=== PATIENT | female | born 1995 | race Hispanic/Latino ===

== ENCOUNTER 2017-05-11 10:06 | Inpatient (IN) | payer MEDICAID ==
[2017-05-11] MEDS ORDERED: Sodium Chloride 0.9% 1,000 ML IV STA (10:34)
[2017-05-11] MEDS ORDERED: Iohexol 240 (50 ml) ONE (10:39)
--- NOTE | 2017-05-11 10:39 | ED PDOC ---
Arrival/HPI - General Chief Complaint: Abdominal Pain Time Seen by Provider: 05/11/17 10:08 Historian: Patient - History of Present Illness Narrative History of Present Illness (Text): 05/11/17 10:35 21 y/o female, pmh including abdominal pain, allergic to penicillin, c/o sudden onset of generalized abdominal pain started this morning. Aching and sharp pain , epigastric to the periumbilical region, associated with nausea and vomiting, feeling fatigue, no night sweat, no change in vision, no chest pain or shortness of breath, no palpitation, no night sweat, no other medical or psychological complaints. Past Medical History - Provider Review Nursing Documentation Reviewed: Yes - Past History Past History: No Previous - Infectious Disease Hx of Infectious Diseases: None - Tetanus Immunization Tetanus Immunization: Up to Date - Reproductive Menopause: No - Past Medical History Past Medical History: No Previous - Hematological/Oncological Hx Anemia: Yes - Psychiatric Hx Substance Use: No - Past Surgical History Past Surgical History: No Previous - Anesthesia Hx Anesthesia: No Family/Social History - Physician Review Nursing Documentation Reviewed: Yes Family/Social History: Unknown Family HX Smoking Status: Unknown If Ever Smoked Hx Alcohol Use: No Hx Substance Use: No Allergies/Home Meds Allergies/Adverse Reactions: Allergies No Known Allergies Allergy (Verified 05/11/17 14:41) Home Medications: Home Meds Medication Instructions Recorded Confirmed RX: No Known Home Med 05/11/17 05/11/17 Review of Systems - Review of Systems Constitutional: absent: Fatigue, Fevers Eyes: absent: Vision Changes ENT: absent: Hearing Changes Respiratory: absent: SOB, Cough Cardiovascular: absent: Chest Pain Gastrointestinal: Abdominal Pain, Nausea Skin: absent: Rash, Pruritis Neurological: absent: Headache Psychiatric: absent: Anxiety, Depression, Suicidal Ideation Physical Exam Vital Signs Temp Pulse Resp BP Pulse Ox 05/11/17 14:14 79 18 103/61 100 05/11/17 13:11 85 18 99/58 L 100 05/11/17 11:21 90 20 90/52 L 100 05/11/17 10:22 97.5 F L 87 22 113/52 L 100 05/11/17 10:14 98 F 71 16 102/56 L 98 - Systems Exam Head: Present: Atraumatic, Normocephalic Pupils: Present: PERRL Extroacular Muscles: Present: EOMI Conjunctiva: Present: Normal Mouth: Present: Moist Mucous Membranes Neck: Present: Normal Range of Motion Respiratory/Chest: Present: Clear to Auscultation, Good Air Exchange. No: Respiratory Distress, Accessory Muscle Use Cardiovascular: Present: Regular Rate and Rhythm, Normal S1, S2. No: Murmurs Abdomen: Present: Tenderness (epigastric and periumbilical region), Normal Bowel Sounds. No: Distention, Peritoneal Signs, Rebound, Guarding Back: Present: Normal Inspection Upper Extremity: Present: Normal Inspection. No: Cyanosis, Edema Lower Extremity: Present: Normal Inspection. No: Edema Neurological: Present: GCS=15, CN II-XII Intact, Speech Normal Skin: Present: Warm, Dry, Normal Color. No: Rashes Psychiatric: Present: Alert, Oriented x 3, Normal Insight, Normal Concentration Medical Decision Making ED Course and Treatment: 05/11/17 10:40 -labs/ua -gallbladder sonogram -CT abdomen and pelvis -IVF/pepcid/reglan -Observe and reassess 05/11/17 14:03 -Urine hcg negative. -labs are non-significant except wbc 11.7 -sonogram show no acute findings -CT abdomen and pelvis show acute appendicitis -IV cipro/flagyl/pt/ptt/ekg/cxr ordered -Pt. will need surgery, [facility] general surgery 05/11/17 14:20 -I spoke to the residential direct support professional Dr. Gabino Saleh, discussed about the case/labs/ radiology results, stated that Dr. Franklin is in surgery, unable to take the call and he will speak to Dr. Rebolledo. He will come to evaluate the patient first. -I discussed with the patient and agreed to be admitted. 05/11/17 14:50 -EKG: NSR @ 86 BPM, no ST elevation or depression, no T wave inversion. -Chest xray show no active disease -General surgeon resident Dr. Gabino Chase evaluated the patient, [facility] -I spoke to Dr. Dewey, discussed about the case and will admit the patient. -I discussed with Dr. Joseph and he will put in the admission order. - Lab Interpretations Lab Results: 05/11/17 10:40 05/11/17 10:40 Lab Results 05/11/17 13:00: Urine Color Yellow, Urine Appearance Clear, Urine pH 6.0, Ur Specific [place] 1.025, Urine Protein Negative, Urine Glucose (UA) Negative, Urine Ketones 40 H, Urine Blood Negative, Urine Nitrate Negative, Urine Bilirubin Negative, Urine Urobilinogen 0.2, Ur Leukocyte Esterase Negative 05/11/17 10:40: WBC 11.7 H, RBC 4.30, Hgb 12.4, Hct 37.4, MCV 87.0, MCH 28.8, MCHC 33.2, RDW 13.5, Plt Count 167, MPV 10.9, Gran % 84.3 H, Lymph % (Auto) 9.1 L, [place] % (Auto) 6.2 H, Eos % (Auto) 0.2 L, Baso % (Auto) 0.2, Gran # 9.88 H, Lymph # 1.1 L, [place] # 0.7 H, Eos # 0.0, Baso # 0.02 05/11/17 10:40: Beta HCG, Quant < 2.39 05/11/17 10:40: Sodium 136, Potassium 3.8, Chloride 105, Carbon Dioxide 23, Anion Gap 12, BUN 13, Creatinine 0.7, Est GFR ( Amer) > 60, Est GFR (Non- Af Amer) > 60, Random Glucose 120 H, Calcium 9.0, Magnesium 1.9, Total Bilirubin 0.5, AST 31, ALT 25, Alkaline Phosphatase 66, Total Protein 7.0, Albumin 4.0, Globulin 3.0, Albumin/Globulin Ratio 1.4, Lipase 116 I have reviewed the lab results: Yes Interpretation: Abnormal lab values (wbc 11.7) - RAD Interpretation Radiology Orders: 05/11/17 10:33 ABD PELVIS PO & IV CONTRAST [CT] Stat 05/11/17 10:40 GALL BLADDER [US] Stat 05/11/17 14:01 CHEST PORTABLE [RAD] Stat Gallbladder: HISTORY: epigastric abdominal pain COMPARISON: None. TECHNIQUE: Sonographic evaluation of the right upper quadrant of the abdomen. FINDINGS: LIVER: Measures 15.2 cm in length. Patent portal vein. Portal venous flow: Hepatopetal. Unremarkeable echogenicity of the liver parenchyma. No mass. No intrahepatic bile duct dilatation. GALLBLADDER: Unremarkable. No gallstones. COMMON BILE DUCT: Measures 2.3 mm. No stones. No dilatation. PANCREAS: Unremarkable as visualized. No mass. No ductal dilatation. RIGHT KIDNEY: Measures 10.9 cm in length. Normal echogenicity. No calculus, mass, or hydronephrosis. AORTA: No aneurysmal dilatation. IVC: Unremarkable. OTHER FINDINGS: None . IMPRESSION: No acute findings related to/accounting for the clinical presentation. PROCEDURE: CT Abdomen and Pelvis with contrast HISTORY: generalized abdominal pain COMPARISON: None. TECHNIQUE: Contrast dose: 100 cc of Omni 350 Radiation dose: Total exam DLP = 256 mGy-cm. This CT exam was performed using one or more of the following dose reduction techniques: Automated exposure control, adjustment of the mA and/or kV according to patient size, and/or use of iterative reconstruction technique. FINDINGS: LOWER THORAX: Unremarkable. LIVER: Unremarkable. No gross lesion or ductal dilatation. GALLBLADDER AND BILE DUCTS: Unremarkable. PANCREAS: Unremarkable. No gross lesion or ductal dilatation. SPLEEN: Unremarkable. ADRENALS: Unremarkable. No mass. KIDNEYS AND URETERS: Unremarkable. No hydronephrosis. No solid mass. VASCULATURE: Unremarkable. No aortic aneurysm. BOWEL: Unremarkable. No obstruction. No gross mural thickening. APPENDIX: The appendix is dilated measuring 10 mm. There is thickening and enhancement of the wall of the appendix. Findings are consistent with early appendicitis. Findings are seen on axial image 119 and coronal image 21. The study was reviewed with the MYLA Levy at 2 p.m. PERITONEUM: Unremarkable. No free fluid. No free air. LYMPH NODES: Unremarkable. No enlarged lymph nodes. BLADDER: Unremarkable. REPRODUCTIVE: Unremarkable. BONES: No acute fracture. OTHER FINDINGS: None. IMPRESSION: The appendix is dilated measuring 10 mm. There is thickening and enhancement of the wall of the appendix. Findings are consistent with early appendicitis. Chest xray; HISTORY: medical clearance COMPARISON: No prior. FINDINGS: LUNGS: No active pulmonary disease. PLEURA: No significant pleural effusion identified, no pneumothorax apparent. CARDIOVASCULAR: Normal. OSSEOUS STRUCTURES: No significant abnormalities. VISUALIZED UPPER ABDOMEN: Normal. OTHER FINDINGS: None. IMPRESSION: No active disease. Wire Winding Machine Operator: Radiologist - EKG Interpretation EKG Interpretation (Text): 05/11/17 14:26 -EKG: NSR @ 86 BPM, no ST elevation or depression, no T wave inversion. Interpreted by ED Physician: Yes Type: 12 lead EKG - Medication Orders Current Medication Orders: Ciprofloxacin (Cipro 400mg/200ml Dsw) 400 mg in 200 mls @ 133.3 mls/hr IVPB STAT STA PRN Reason: Protocol Stop: 05/11/17 15:28 Metronidazole (Flagyl) 500 mg in 100 mls @ 100 mls/hr IVPB STAT STA PRN Reason: Protocol Stop: 05/11/17 15:00 Last Admin: 05/11/17 14:38 Dose: 100 mls/hr eMAR Start Stop Document 05/11/17 14:38 CNR (Rec: 05/11/17 14:38 CNR [id number]) Intravenous Solution Start Date 05/11/17 Start Time 14:38 Discontinued Medications Famotidine (Pepcid) 20 mg IVP STAT STA Stop: 05/11/17 10:34 Last Admin: 05/11/17 10:48 Dose: 20 mg IVP Administration Document 05/11/17 10:48 CNR (Rec: 05/11/17 10:48 CNR [id number]) Charges for Administration # of IVP Administrations 1 Sodium Chloride (Sodium Chloride 0.9%) 1,000 mls @ 999 mls/hr IV .Q1H1M STA Stop: 05/11/17 11:34 Last Admin: 05/11/17 10:48 Dose: 999 mls/hr eMAR Start Stop Document 05/11/17 10:48 CNR (Rec: 05/11/17 10:48 CNR [id number]) Intravenous Solution Start Date 05/11/17 Start Time 10:48 Metoclopramide HCl (Reglan) 10 mg IVP STAT STA Stop: 05/11/17 10:34 Last Admin: 05/11/17 11:31 Dose: 10 mg IVP Administration Document 05/11/17 11:31 CNR (Rec: 05/11/17 11:31 CNR [id number]) Charges for Administration # of IVP Administrations 1 - PA / RIM FIRE PRIMING TOOL SETTER / Resident Statement MD/DO has reviewed & agrees with the documentation as recorded. Disposition/Present on Arrival - Present on Arrival Any Indicators Present on Arrival: No History of DVT/PE: No History of Uncontrolled Diabetes: No Urinary Catheter: No History of Decub. Ulcer: No History Surgical Site Infection Following: None - Disposition Have Diagnosis and Disposition been Completed?: Yes Diagnosis: Appendicitis, Abdominal pain Disposition: HOSPITALIZED Disposition Time: 14:04 Patient Plan: Admission Patient Problems: Current Active Problems Problem Status Onset Abdominal pain Acute Appendicitis Acute Condition: STABLE Forms: [employer] (Sinhala)
[2017-05-11 11:25] LABS: BASO # 0.02 K/mm3 (0.0-2.0); BASO % 0.2 % (0.0-3.0); EOS % 0.2 % (1.5-5.0); GRAN # 9.88 (1.4-6.5); GRAN % 84.3 % (50.0-68.0); HEMATOCRIT 37.4 % (36.0-48.0); LYMPH # 1.1 (1.2-3.4); LYMPH % 9.1 % (22.0-35.0); MEAN CORPUSCULAR HEMOGLOBIN 28.8 pg (25.0-35.0); MEAN CORPUSCULAR HGB CONC 33.2 g/dl (31.0-37.0); MEAN PLATELET VOLUME 10.9 fl (7.0-11.0); MONO # 0.7 (0.1-0.6); MONO % 6.2 % (1.0-6.0); RED CELL DISTRIBUTION WIDTH 13.5 % (11.5-14.5); WHITE BLOOD COUNT 11.7 10^3/ul (4.5-11.0)
[2017-05-11 12:10] LABS: ALB/GLOB RATIO 1.4 (1.1-1.8); ALKALINE PHOSPHATASE 66 U/L (38-126); ALT/SGPT 25 U/L (7-56); AST/SGOT 31 U/L (14-36); BILIRUBIN,TOTAL 0.5 mg/dL (0.2-1.3); BLOOD UREA NITROGEN 13 mg/dL (7-21); CARBON DIOXIDE 23 mmol/L (21-33); CHLORIDE 105 mmol/L (98-107); GFR AFRICAN-AMERICAN > 60; GLUCOSE,RANDOM 120 mg/dL (70-110); LIPASE 116 U/L (23-300); MAGNESIUM 1.9 mg/dL (1.7-2.2); POTASSIUM 3.8 mmol/L (3.6-5.0); SODIUM 136 mmol/L (132-148)
[2017-05-11 13:15] LABS: URINE BILIRUBIN NEGATIVE (NEGATIVE); URINE BLOOD NEGATIVE (NEGATIVE); URINE GLUCOSE (UA) NEGATIVE (NEGATIVE); URINE KETONE 40 mg/dL (NEGATIVE); URINE LEUKOCYTE ESTERASE NEGATIVE Leu/uL (NEGATIVE); URINE PROTEIN NEGATIVE mg/dL (<30 mg/dL); URINE UROBILINOGEN 0.2 E.U./dL (<1 E.U./dL)
--- NOTE | 2017-05-11 13:21 | US ---
HISTORY: epigastric abdominal pain COMPARISON: None. TECHNIQUE: Sonographic evaluation of the right upper quadrant of the abdomen. FINDINGS: LIVER: Measures 15.2 cm in length. Patent portal vein. Portal venous flow: Hepatopetal. Unremarkeable echogenicity of the liver parenchyma. No mass. No intrahepatic bile duct dilatation. GALLBLADDER: Unremarkable. No gallstones. COMMON BILE DUCT: Measures 2.3 mm. No stones. No dilatation. PANCREAS: Unremarkable as visualized. No mass. No ductal dilatation. RIGHT KIDNEY: Measures 10.9 cm in length. Normal echogenicity. No calculus, mass, or hydronephrosis. AORTA: No aneurysmal dilatation. IVC: Unremarkable. OTHER FINDINGS: None . IMPRESSION: No acute findings related to/accounting for the clinical presentation.
[2017-05-11 13:23] LABS: URINE APPEARANCE CLEAR (CLEAR); URINE COLOR YELLOW (YELLOW)
[2017-05-11] MEDS ORDERED: Iohexol 350 MG/100 ML VIAL ONE (13:26)
[2017-05-11] MEDS ORDERED: Ciprofloxacin 400mg/200ml D5W 400 MG/200 ML BAG IVPB STA (13:58)
[2017-05-11] MEDS ORDERED: metroNIDAZOLE IV 500 mg/100 ml 500 MG/100 ML BAG IVPB STA (14:01)
--- NOTE | 2017-05-11 14:10 | CT ---
PROCEDURE: CT Abdomen and Pelvis with contrast HISTORY: generalized abdominal pain COMPARISON: None. TECHNIQUE: Contrast dose: 100 cc of Omni 350 Radiation dose: Total exam DLP = 256 mGy-cm. This CT exam was performed using one or more of the following dose reduction techniques: Automated exposure control, adjustment of the mA and/or kV according to patient size, and/or use of iterative reconstruction technique. FINDINGS: LOWER THORAX: Unremarkable. LIVER: Unremarkable. No gross lesion or ductal dilatation. GALLBLADDER AND BILE DUCTS: Unremarkable. PANCREAS: Unremarkable. No gross lesion or ductal dilatation. SPLEEN: Unremarkable. ADRENALS: Unremarkable. No mass. KIDNEYS AND URETERS: Unremarkable. No hydronephrosis. No solid mass. VASCULATURE: Unremarkable. No aortic aneurysm. BOWEL: Unremarkable. No obstruction. No gross mural thickening. APPENDIX: The appendix is dilated measuring 10 mm. There is thickening and enhancement of the wall of the appendix. Findings are consistent with early appendicitis. Findings are seen on axial image 119 and coronal image 21. The study was reviewed with the MYLA Levy at 2 p.m. PERITONEUM: Unremarkable. No free fluid. No free air. LYMPH NODES: Unremarkable. No enlarged lymph nodes. BLADDER: Unremarkable. REPRODUCTIVE: Unremarkable. BONES: No acute fracture. OTHER FINDINGS: None. IMPRESSION: The appendix is dilated measuring 10 mm. There is thickening and enhancement of the wall of the appendix. Findings are consistent with early appendicitis.
--- NOTE | 2017-05-11 14:31 | RAD ---
HISTORY: medical clearance COMPARISON: No prior. FINDINGS: LUNGS: No active pulmonary disease. PLEURA: No significant pleural effusion identified, no pneumothorax apparent. CARDIOVASCULAR: Normal. OSSEOUS STRUCTURES: No significant abnormalities. VISUALIZED UPPER ABDOMEN: Normal. OTHER FINDINGS: None. IMPRESSION: No active disease.
--- NOTE | 2017-05-11 14:53 | CP.PCM.CON ---
Addendum entered and electronically signed by Main Raya DO 05/11/17 15:35 : Negative McBurney's Point, Negative Rovsing sign. Original Note: <Main Raya - Last Filed: 05/11/17 14:42> History of Present Illness - History of Present Illness History of Present Illness: Surgery Consult Note for Dr. Moctezuma Pt is a 21 yo female with PMH of iron-deficiency anemia presents with abdominal pain that started this AM. Pt describes pain as sharp and is localized to the epigastric region and radiates periumbically. Pt admits to nausea and multiple instances of bilious, non-bloody vomiting, and diarrhea. Pt states that pain was exacerbated during car ride to hospital and any sudden movements. Pt reports similar symptoms in the past that resolved after vomiting. In the ED, patient was given Reglan and Pepcid, which resolved her symptoms. Pt denied CP, SOB, fever, chills, [place]STER, dizziness, fatigue, melena, BRBPR, or dysuria. PMH: iron deficiency anemia PSH: None All: NKDA FHx: Non-contributory SH: Denied tobacco, EtOH, and illicit drug use Review of Systems - Review of Systems Review of Systems: 12 point ROS reviewed and is negative other than what is stated in HPI. Past Patient History - Infectious Disease Hx of Infectious Diseases: None - Tetanus Immunizations Tetanus Immunization: Up to Date - Past Social History Smoking Status: Unknown If Ever Smoked - HEMATOLOGICAL/ONCOLOGICAL Hx Anemia: Yes - PSYCHIATRIC Hx Substance Use: No - ANESTHESIA Hx Anesthesia: No Meds Allergies/Adverse Reactions: Allergies Allergy/AdvReac Type Severity Reaction Status Date / Time No Known Allergies Allergy Verified 05/11/17 17:31 - Medications Medications: Current Medications Ciprofloxacin (Cipro 400mg/200ml Dsw) 400 mg in 200 mls @ 133.3 mls/hr IVPB STAT STA PRN Reason: Protocol Stop: 05/11/17 15:28 Metronidazole (Flagyl) 500 mg in 100 mls @ 100 mls/hr IVPB STAT STA PRN Reason: Protocol Stop: 05/11/17 15:00 Last Admin: 05/11/17 14:38 Dose: 100 mls/hr Physical Exam - Constitutional Appears: No Acute Distress - Head Exam Head Exam: NORMAL INSPECTION - Eye Exam Eye Exam: Normal appearance - Neck Exam Neck exam: Positive for: Normal Inspection - Respiratory Exam Respiratory Exam: NORMAL BREATHING PATTERN. absent: Accessory Muscle Use, Respiratory Distress - Cardiovascular Exam Cardiovascular Exam: RRR. absent: Diastolic murmur, Gallop, Rubs, Systolic Murmur - GI/Abdominal Exam GI & Abdominal Exam: Soft. absent: Distended, Guarding, Organomegaly, Rebound, Tenderness Additional comments: Negative Psoas Sign, Negative Obturator Sign, No peritoneal signs - Extremities Exam Extremities exam: Positive for: normal inspection - Neurological Exam Neurological exam: Alert, Oriented x3 - Skin Skin Exam: Dry, Intact, Normal Color, Warm Results - Vital Signs Recent Vital Signs: Last Vital Signs Temp 97.5 F L 05/11/17 10:22 Pulse 79 05/11/17 14:14 Resp 18 05/11/17 14:14 BP 103/61 05/11/17 14:14 Pulse Ox 100 05/11/17 14:14 - Labs Result Diagrams: 05/11/17 10:40 05/11/17 10:40 Labs: Laboratory Results - last 24 hr 05/11/17 05/11/17 05/11/17 10:40 10:40 10:40 WBC 11.7 H RBC 4.30 Hgb 12.4 Hct 37.4 MCV 87.0 MCH 28.8 MCHC 33.2 RDW 13.5 Plt Count 167 MPV 10.9 Gran % 84.3 H Lymph % (Auto) 9.1 L [place] % (Auto) 6.2 H Eos % (Auto) 0.2 L Baso % (Auto) 0.2 Gran # 9.88 H Lymph # 1.1 L [place] # 0.7 H Eos # 0.0 Baso # 0.02 Sodium 136 Potassium 3.8 Chloride 105 Carbon Dioxide 23 Anion Gap 12 BUN 13 Creatinine 0.7 Est GFR ( Amer) > 60 Est GFR (Non-Af Amer) > 60 Random Glucose 120 H Calcium 9.0 Magnesium 1.9 Total Bilirubin 0.5 AST 31 ALT 25 Alkaline Phosphatase 66 Total Protein 7.0 Albumin 4.0 Globulin 3.0 Albumin/Globulin Ratio 1.4 Lipase 116 Beta HCG, Quant < 2.39 Urine Color Urine Appearance Urine pH Ur Specific [place] Urine Protein Urine Glucose (UA) Urine Ketones Urine Blood Urine Nitrate Urine Bilirubin Urine Urobilinogen Ur Leukocyte Esterase 05/11/17 13:00 WBC RBC Hgb Hct MCV MCH MCHC RDW Plt Count MPV Gran % Lymph % (Auto) [place] % (Auto) Eos % (Auto) Baso % (Auto) Gran # Lymph # [place] # Eos # Baso # Sodium Potassium Chloride Carbon Dioxide Anion Gap BUN Creatinine Est GFR ( Amer) Est GFR (Non-Af Amer) Random Glucose Calcium Magnesium Total Bilirubin AST ALT Alkaline Phosphatase Total Protein Albumin Globulin Albumin/Globulin Ratio Lipase Beta HCG, Quant Urine Color Yellow Urine Appearance Clear Urine pH 6.0 Ur Specific [place] 1.025 Urine Protein Negative Urine Glucose (UA) Negative Urine Ketones 40 H Urine Blood Negative Urine Nitrate Negative Urine Bilirubin Negative Urine Urobilinogen 0.2 Ur Leukocyte Esterase Negative Assessment & Plan - Assessment and Plan (Free Text) Assessment: 21 yo F presents with abdominal pain Plan: - CT showed 10 mm dilated appendix with wall thickening - GB US negative - Will reevaulate with serial abdominal exams - Cont IV abx - NPO - IVF - DW Dr. Rhianna Raay, PGY1 <Buddy Moctezuma - Last Filed: 05/12/17 00:17> Meds - Medications Medications: Current Medications Acetaminophen (Tylenol 325mg Tab) 650 mg PO Q6H PRN PRN Reason: Pain, Mild (1-3) Metronidazole (Flagyl) 500 mg in 100 mls @ 100 mls/hr IVPB Q8 GEOR[place]ES PRN Reason: Protocol Last Admin: 05/11/17 21:46 Dose: 100 mls/hr Lactated Ringer's (Lactated Ringer's) 1,000 mls @ 100 mls/hr IV .Q10H [facility] Last Admin: 05/11/17 15:49 Dose: 100 mls/hr Ciprofloxacin (Cipro 400mg/200ml Dsw) 400 mg in 200 mls @ 133.3 mls/hr IVPB 0600,1800 GEORGES PRN Reason: Protocol Stop: 05/12/17 07:31 Ondansetron HCl (Zofran Inj) 4 mg IVP Q6 GEORGES Results - Vital Signs Recent Vital Signs: Last Vital Signs Temp 98.8 F 05/11/17 16:31 Pulse 90 05/11/17 16:31 Resp 18 05/11/17 16:31 BP 110/70 05/11/17 16:31 Pulse Ox 98 05/11/17 16:00 - Labs Result Diagrams: 05/11/17 10:40 05/11/17 10:40 Labs: Laboratory Results - last 24 hr 05/11/17 15:00 PT 12.7 H INR 1.16 H APTT 28.4 Assessment & Plan - Assessment and Plan (Free Text) Plan: Patient was seen and examined by me. I agree with assessment and plan as per resident's note. - Date & Time Date: 05/11/17 Time: 19:45
[2017-05-11] MEDS ORDERED: Lactated Ringer's 1,000 ML IV SCH (15:00)
[2017-05-11 15:20] LABS: INR 1.16 (0.93-1.08); PARTIAL THROMBOPLASTIN TIME 28.4 Seconds (25.1-36.5)
--- NOTE | 2017-05-11 16:30 | CP.PCM.HP ---
<Leesa Coles - Last Filed: 05/11/17 16:21> History of Present Illness - History of Present Illness History of Present Illness: Leesa Coles DO PGY1 - Internal Medicine H&P CC: Abdominal pain 21 yo F with PMH of iron-deficiency anemia presents to the ER complaining of abdominal pain that started early this morning. Pain is sharp, epigastric, nonradiating, constant, associated with nausea and vomiting. She has had this pain in the past, usually associated with nausea, and relieved by vomiting. This time, pain is worse than prior episodes, and did not resolve. She admits to 2 episodes of diarrhea overnight, followed by a normal formed BM; no blood or mucus in stool, no foul odor or discoloration. She also admits to 10 episodes of vomiting, first gastric contents, then clear, then bilious, the last of which occurred in the ER. She was treated symptomatically in the ER, and her nausea subsided, and her pain resolved. She denies any fever, chills, recent travel, sick contacts, recent illness, recent antibiotic usage, dysuria, hematuria, back pain, hematochezia, melena, CP, SOB. She does admit to eating sushi yesterday from a grocery store, but she has had this same food from this same store in the past, without any problems. 12 point ROS was obtained and was negative except as in HPI. PMH: iron deficiency anemia PSH: None FHx: Non-contributory SH: Denied tobacco, EtOH, and illicit drug use All: NKDA Home meds: Oral contraceptive Present on Admission - Present on Admission Any Indicators Present on Admission: No Past Patient History - Infectious Disease Hx of Infectious Diseases: None - Tetanus Immunizations Tetanus Immunization: Up to Date - Past Social History Smoking Status: Unknown If Ever Smoked - HEMATOLOGICAL/ONCOLOGICAL Hx Anemia: Yes - PSYCHIATRIC Hx Substance Use: No - ANESTHESIA Hx Anesthesia: No Meds Allergies/Adverse Reactions: Allergies Allergy/AdvReac Type Severity Reaction Status Date / Time No Known Allergies Allergy Verified 05/11/17 14:41 Physical Exam - Constitutional Appears: Non-toxic, No Acute Distress - Head Exam Head Exam: ATRAUMATIC, NORMOCEPHALIC - Eye Exam Eye Exam: EOMI, Normal appearance. absent: Conjunctival injection, Periorbital swelling - ENT Exam ENT Exam: Mucous Membranes Moist - Neck Exam Neck exam: Positive for: Normal Inspection. Negative for: Lymphadenopathy, Meningismus - Respiratory Exam Respiratory Exam: Clear to Auscultation Bilateral, NORMAL BREATHING PATTERN - Cardiovascular Exam Cardiovascular Exam: REGULAR RHYTHM, +S1, +S2. absent: Tachycardia - GI/Abdominal Exam GI & Abdominal Exam: Normal Bowel Sounds, Soft. absent: Distended, Firm, Guarding, Rebound, Rigid, Tenderness - Extremities Exam Extremities exam: Negative for: calf tenderness, pedal edema - Back Exam Back exam: absent: CVA tenderness (L), CVA tenderness (R) - Neurological Exam Neurological exam: Alert, Oriented x3 - Psychiatric Exam Psychiatric exam: Normal Affect, Normal Mood - Skin Skin Exam: Dry, Intact, Normal Color, Warm Results - Vital Signs Recent Vital Signs: Last Vital Signs Temp 98.4 F 05/11/17 15:31 Pulse 97 H 05/11/17 15:31 Resp 18 05/11/17 15:31 BP 124/70 05/11/17 15:31 Pulse Ox 100 05/11/17 15:31 - Labs Result Diagrams: 05/11/17 10:40 05/11/17 10:40 Labs: Laboratory Results - last 24 hr 05/11/17 15:00 PT 12.7 H INR 1.16 H APTT 28.4 Assessment & Plan - Assessment and Plan (Free Text) Assessment: 21 yo F with PMH of iron deficiency anemia presents for abdominal pain, nausea, and vomiting. Plan Abdominal pain - Likely 2/2 gastroenteritis vs acute appendicitis vs gastritis/PUD - Patient had CT A/P that showed dilation and thickening of the appendix, possible early signs of appendicitis - Intake labs significant for leukocytosis; patient afebrile - Symptoms have resolved, but patient reportedly initially presented s/s worrisome for peritonitis - Patient received IV cipro and flagyl in the ER - Continue Cipro and Flagyl; as ordered by surgery - Continue IVF - Maintain NPO - Zofran PRN for nausea - Serial abdominal exams - Surgery on consult; appreciate recs GI/DVT Ppx - Protonix, SCDs Patient seen, discussed, and reviewed with attending <Radha Dewey - Last Filed: 05/11/17 17:16> Results - Vital Signs Recent Vital Signs: Last Vital Signs Temp 98.8 F 05/11/17 16:00 Pulse 90 05/11/17 16:00 Resp 18 05/11/17 16:00 BP 110/70 05/11/17 16:00 Pulse Ox 98 05/11/17 16:00 - Labs Result Diagrams: 05/11/17 10:40 05/11/17 10:40 Labs: Laboratory Results - last 24 hr 05/11/17 15:00 PT 12.7 H INR 1.16 H APTT 28.4 Attending/Attestation - Attestation I have personally seen and examined this patient.: Yes I have fully participated in the care of the patient.: Yes I have reviewed all pertinent clinical information: Yes Notes (Text): 05/11/17 17:15 Patient was seen and examined with biomedical service engineer. Agreed with resident assessment and plan. Management plan was discussed in detail with patient Education was provided.
[2017-05-11 17:19] VITALS: BMI 21.6
[2017-05-11] MEDS: metroNIDAZOLE IV 500 mg/100 ml 500 MG/100 ML BAG IVPB SCH (21:46)
[2017-05-11] MEDS ORDERED: Ciprofloxacin 400mg/200ml D5W 400 MG/200 ML BAG IVPB SCH (22:00)
--- NOTE | 2017-05-11 23:49 | CARD ---
APPROVED REPORT EKG Measurement Heart [id number] <Conclusion> Normal sinus rhythm Normal ECG
[2017-05-12] MEDS: metroNIDAZOLE IV 500 mg/100 ml 500 MG/100 ML BAG IVPB SCH ×2 (05:42→13:46)
[2017-05-12] MEDS ORDERED: Ciprofloxacin 400mg/200ml D5W 400 MG/200 ML BAG IVPB SCH (06:00)
[2017-05-12 06:33] VITALS: RESP 16
[2017-05-12 07:33] LABS: BASO # 0.02 K/mm3 (0.0-2.0); BASO % 0.4 % (0.0-3.0); EOS # 0.1 (0.0-0.7); EOS % 0.9 % (1.5-5.0); GRAN # 3.23 (1.4-6.5); GRAN % 59.9 % (50.0-68.0); HEMATOCRIT 36.1 % (36.0-48.0); LYMPH # 1.5 (1.2-3.4); MEAN CORPUSCULAR HEMOGLOBIN 28.4 pg (25.0-35.0); MEAN CORPUSCULAR HGB CONC 32.7 g/dl (31.0-37.0); MEAN PLATELET VOLUME 10.8 fl (7.0-11.0); MONO # 0.6 (0.1-0.6); MONO % 10.8 % (1.0-6.0); RED CELL DISTRIBUTION WIDTH 13.5 % (11.5-14.5); WHITE BLOOD COUNT 5.4 10^3/ul (4.5-11.0)
--- NOTE | 2017-05-12 07:37 | CP.PCM.PN ---
<DorotaMain - Last Filed: 05/12/17 07:34> Subjective - Date & Time of Evaluation Date of Evaluation: 05/12/17 Time of Evaluation: 07:37 - Subjective Subjective: Surgery Progress Note for Dr. To Pt seen and examined at bedside. No acute overnight events. Pt tolerated diet well. Pt denies any further abdominal pain. Pt denied CP, SOB, nausea, vomiting , diarrhea, constipation, fever, chills, CHESTER, or fatigue. Objective - Vital Signs/Intake and Output Vital Signs (last 24 hours): Temp Pulse Resp BP Pulse Ox 99 F 70 16 104/60 98 05/12/17 00:00 05/12/17 00:00 05/12/17 00:00 05/12/17 00:00 05/12/17 00:00 Intake and Output: 05/12/17 05/12/17 06:59 18:59 Intake Total 0 Balance 0 - Medications Medications: Current Medications Acetaminophen (Tylenol 325mg Tab) 650 mg PO Q6H PRN PRN Reason: Pain, Mild (1-3) Metronidazole (Flagyl) 500 mg in 100 mls @ 100 mls/hr IVPB Q8 GEORGSE PRN Reason: Protocol Last Admin: 05/12/17 05:42 Dose: 100 mls/hr Lactated Ringer's (Lactated Ringer's) 1,000 mls @ 100 mls/hr IV .Q10H [facility] Last Admin: 05/11/17 15:49 Dose: 100 mls/hr Ondansetron HCl (Zofran Inj) 4 mg IVP Q6 GEORGES - Labs Labs: PT 12.7 SECONDS (9.4-12.5) H 05/11/17 15:00 INR 1.16 (0.93-1.08) H 05/11/17 15:00 APTT 28.4 Seconds (25.1-36.5) 05/11/17 15:00 - Constitutional Appears: No Acute Distress - Head Exam Head Exam: NORMAL INSPECTION - Eye Exam Eye Exam: Normal appearance - ENT Exam ENT Exam: Normal Exam - Neck Exam Neck Exam: Normal Inspection - Respiratory Exam Respiratory Exam: NORMAL BREATHING PATTERN. absent: Accessory Muscle Use, Respiratory Distress - Cardiovascular Exam Cardiovascular Exam: RRR. absent: Gallop, Rubs, Murmur - GI/Abdominal Exam GI & Abdominal Exam: Soft. absent: Distended, Guarding, Tenderness, Rebound - Extremities Exam Extremities Exam: Normal Inspection - Neurological Exam Neurological Exam: Alert, Awake, Oriented x3 - Psychiatric Exam Psychiatric exam: Normal Mood - Skin Skin Exam: Dry, Intact, Normal Color, Warm Assessment and Plan - Assessment and Plan (Free Text) Assessment: 21 yo F presents with abdominal pain Plan: - Clear for DC from surgical standpoint - Abdominal pain likely 2/2 gastroenteritis - Diet advanced, pt tolerated - Please reconsult as needed - DW Dr. Rhianna Raya, PGY1 <Buddy Moctezuma - Last Filed: 05/12/17 23:01> Objective - Vital Signs/Intake and Output Vital Signs (last 24 hours): Temp Pulse Resp BP Pulse Ox 99.0 F 69 16 100/61 99 05/12/17 07:30 05/12/17 07:30 05/12/17 07:30 05/12/17 07:30 05/12/17 07:30 - Labs Labs: 05/12/17 07:00 05/12/17 07:00 PT 12.7 SECONDS (9.4-12.5) H 05/11/17 15:00 INR 1.16 (0.93-1.08) H 05/11/17 15:00 APTT 28.4 Seconds (25.1-36.5) 05/11/17 15:00 Assessment and Plan - Assessment and Plan (Free Text) Plan: Patient was seen and examined by me. I agree with assessment and plan as per resident's note. Patient will be discharged home as her pain is completely resolved at this point and patient is tolerating regular diet.
[2017-05-12 07:42] VITALS: BP 100/61; PULSE 69; TEMP 99; O2SAT 99
[2017-05-12 07:44] LABS: ALB/GLOB RATIO 1.2 (1.1-1.8); ALKALINE PHOSPHATASE 59 U/L (38-126); ALT/SGPT 31 U/L (7-56); AST/SGOT 28 U/L (14-36); BILIRUBIN,TOTAL 0.8 mg/dL (0.2-1.3); BLOOD UREA NITROGEN 9 mg/dL (7-21); CALCIUM 8.9 mg/dL (8.4-10.5); CARBON DIOXIDE 23 mmol/L (21-33); CHLORIDE 108 mmol/L (98-107); GFR AFRICAN-AMERICAN > 60; GLUCOSE,RANDOM 87 mg/dL (70-110); PHOSPHOROUS 3.3 mg/dL (2.5-4.5); POTASSIUM 4.2 mmol/L (3.6-5.0); SODIUM 138 mmol/L (132-148); TOTAL PROTEIN 6.9 g/dL (5.8-8.3)
--- NOTE | 2017-05-12 13:53 | CP.PCM.DIS ---
<SanketLeesa - Last Filed: 05/12/17 13:42> Provider - Provider Date of Admission: 05/11/17 14:50 Attending physician: Radha Dewey MD Consults: Surgery Time Spent in preparation of Discharge (in minutes): 35 Diagnosis - Discharge Diagnosis (1) Abdominal pain Status: Acute (2) Appendicitis Status: Acute Hospital Course - Lab Results Lab Results: Most Recent Lab Values WBC 5.4 10^3/ul (4.5-11.0) D 05/12/17 07:00 RBC 4.15 10^6/uL (3.5-6.1) 05/12/17 07:00 Hgb 11.8 g/dL (12.0-16.0) L 05/12/17 07:00 Hct 36.1 % (36.0-48.0) 05/12/17 07:00 MCV 87.0 fl (80.0-105.0) 05/12/17 07:00 MCH 28.4 pg (25.0-35.0) 05/12/17 07:00 MCHC 32.7 g/dl (31.0-37.0) 05/12/17 07:00 RDW 13.5 % (11.5-14.5) 05/12/17 07:00 Plt Count 179 10^3/uL (120.0-450.0) 05/12/17 07:00 MPV 10.8 fl (7.0-11.0) 05/12/17 07:00 Gran % 59.9 % (50.0-68.0) 05/12/17 07:00 Lymph % (Auto) 28.0 % (22.0-35.0) 05/12/17 07:00 [place] % (Auto) 10.8 % (1.0-6.0) H 05/12/17 07:00 Eos % (Auto) 0.9 % (1.5-5.0) L 05/12/17 07:00 Baso % (Auto) 0.4 % (0.0-3.0) 05/12/17 07:00 Gran # 3.23 (1.4-6.5) 05/12/17 07:00 Lymph # 1.5 (1.2-3.4) 05/12/17 07:00 [place] # 0.6 (0.1-0.6) 05/12/17 07:00 Eos # 0.1 (0.0-0.7) 05/12/17 07:00 Baso # 0.02 K/mm3 (0.0-2.0) 05/12/17 07:00 PT 12.7 SECONDS (9.4-12.5) H 05/11/17 15:00 INR 1.16 (0.93-1.08) H 05/11/17 15:00 APTT 28.4 Seconds (25.1-36.5) 05/11/17 15:00 Sodium 138 mmol/L (132-148) 05/12/17 07:00 Potassium 4.2 mmol/L (3.6-5.0) 05/12/17 07:00 Chloride 108 mmol/L (98-107) H 05/12/17 07:00 Carbon Dioxide 23 mmol/L (21-33) 05/12/17 07:00 Anion Gap 11 (10-20) 05/12/17 07:00 BUN 9 mg/dL (7-21) 05/12/17 07:00 Creatinine 0.6 mg/dl (0.7-1.2) L 05/12/17 07:00 Est GFR ( Amer) > 60 05/12/17 07:00 Est GFR (Non-Af Amer) > 60 05/12/17 07:00 Random Glucose 87 mg/dL (70-110) 05/12/17 07:00 Calcium 8.9 mg/dL (8.4-10.5) 05/12/17 07:00 Phosphorus 3.3 mg/dL (2.5-4.5) 05/12/17 07:00 Magnesium 2.0 mg/dL (1.7-2.2) 05/12/17 07:00 Total Bilirubin 0.8 mg/dL (0.2-1.3) 05/12/17 07:00 AST 28 U/L (14-36) 05/12/17 07:00 ALT 31 U/L (7-56) 05/12/17 07:00 Alkaline Phosphatase 59 U/L (38-126) 05/12/17 07:00 Total Protein 6.9 g/dL (5.8-8.3) 05/12/17 07:00 Albumin 3.8 g/dL (3.0-4.8) 05/12/17 07:00 Globulin 3.1 gm/dL 05/12/17 07:00 Albumin/Globulin Ratio 1.2 (1.1-1.8) 05/12/17 07:00 Lipase 116 U/L (23-300) 05/11/17 10:40 Beta HCG, Quant < 2.39 mIU/mL (0-6.15) 05/11/17 10:40 Urine Color Yellow (YELLOW) 05/11/17 13:00 Urine Appearance Clear (CLEAR) 05/11/17 13:00 Urine pH 6.0 (4.7-8.0) 05/11/17 13:00 Ur Specific [place] 1.025 (1.005-1.035) 05/11/17 13:00 Urine Protein Negative mg/dL (<30 mg/dL) 05/11/17 13:00 Urine Glucose (UA) Negative mg/dL (NEGATIVE) 05/11/17 13:00 Urine Ketones 40 mg/dL (NEGATIVE) H 05/11/17 13:00 Urine Blood Negative (NEGATIVE) 05/11/17 13:00 Urine Nitrate Negative (NEGATIVE) 05/11/17 13:00 Urine Bilirubin Negative (NEGATIVE) 05/11/17 13:00 Urine Urobilinogen 0.2 E.U./dL (<1 E.U./dL) 05/11/17 13:00 Ur Leukocyte Esterase Negative Jose/uL (NEGATIVE) 05/11/17 13:00 - Hospital Course Hospital Course: 21 yo F with PMH of iron deficiency anemia who initially presented with abdominal pain, nausea, vomiting, and diarrhea, with exam signs concerning for peritonitis. CT abdomen/pelvis done in the ER was concerning for early acute appendicitis. Patient was given symptomatic treatment, in addition to IVF, IV antibiotics, and being made NPO in case of the need for urgent surgery. After initial treatment, the patients symptoms resolved, and her exam returned to baseline, and serial exams were benign. Today, the patient feels well, denies fevers, chills, abdominal pain, nausea, vomiting, diarrhea, or constipation. She endorses a normal appetite and expresses a desire to go home. All questions were answered to her satisfaction and patient was discharged to home. Discharge Exam - Head Exam Head Exam: NORMAL INSPECTION - Eye Exam Eye Exam: EOMI, Normal appearance Pupil Exam: NORMAL ACCOMODATION - Respiratory Exam Respiratory Exam: Clear to PA & Lateral, NORMAL BREATHING PATTERN - Cardiovascular Exam Cardiovascular Exam: REGULAR RHYTHM, +S1, +S2 - GI/Abdominal Exam GI & Abdominal Exam: Normal Bowel Sounds, Soft, Unremarkable. absent: Distended , Firm, Guarding, Mass, Pulsatile Mass, Rebound, Rigid, Tenderness - Extremities Exam Extremities exam: normal inspection - Back Exam Back exam: absent: CVA tenderness (L), CVA tenderness (R) - Neurological Exam Neurological exam: Alert, Oriented x3 - Psychiatric Exam Psychiatric exam: Normal Affect, Normal Mood - Skin Skin Exam: Dry, Intact, Normal Color Discharge Plan - Discharge Medications Prescriptions: Ciprofloxacin [Cipro] 500 mg PO BID #8 tab Metronidazole [Flagyl] 500 mg PO TID #12 tablet - Follow Up Plan Condition: STABLE Disposition: HOME/ ROUTINE Instructions: Appendicitis (DC), Acute Abdominal Pain (DC), Acute Abdominal Pain (GEN) Additional Instructions: 1. Continue to take antibiotics until course is complete, even if you feel better 2. Follow up with your primary care doctor within 1-2 weeks 3. Avoid eating uncooked meats/poultry/fish 4. For any new or worsening concerns contact your PCP immediately or return to ER <Radha Dewey - Last Filed: 05/12/17 14:30> Provider - Provider Date of Admission: 05/11/17 14:50 Attending physician: Radha Dewey MD Hospital Course - Lab Results Lab Results: Most Recent Lab Values WBC 5.4 10^3/ul (4.5-11.0) D 05/12/17 07:00 RBC 4.15 10^6/uL (3.5-6.1) 05/12/17 07:00 Hgb 11.8 g/dL (12.0-16.0) L 05/12/17 07:00 Hct 36.1 % (36.0-48.0) 05/12/17 07:00 MCV 87.0 fl (80.0-105.0) 05/12/17 07:00 MCH 28.4 pg (25.0-35.0) 05/12/17 07:00 MCHC 32.7 g/dl (31.0-37.0) 05/12/17 07:00 RDW 13.5 % (11.5-14.5) 05/12/17 07:00 Plt Count 179 10^3/uL (120.0-450.0) 05/12/17 07:00 MPV 10.8 fl (7.0-11.0) 05/12/17 07:00 Gran % 59.9 % (50.0-68.0) 05/12/17 07:00 Lymph % (Auto) 28.0 % (22.0-35.0) 05/12/17 07:00 [place] % (Auto) 10.8 % (1.0-6.0) H 05/12/17 07:00 Eos % (Auto) 0.9 % (1.5-5.0) L 05/12/17 07:00 Baso % (Auto) 0.4 % (0.0-3.0) 05/12/17 07:00 Gran # 3.23 (1.4-6.5) 05/12/17 07:00 Lymph # 1.5 (1.2-3.4) 05/12/17 07:00 [place] # 0.6 (0.1-0.6) 05/12/17 07:00 Eos # 0.1 (0.0-0.7) 05/12/17 07:00 Baso # 0.02 K/mm3 (0.0-2.0) 05/12/17 07:00 PT 12.7 SECONDS (9.4-12.5) H 05/11/17 15:00 INR 1.16 (0.93-1.08) H 05/11/17 15:00 APTT 28.4 Seconds (25.1-36.5) 05/11/17 15:00 Sodium 138 mmol/L (132-148) 05/12/17 07:00 Potassium 4.2 mmol/L (3.6-5.0) 05/12/17 07:00 Chloride 108 mmol/L (98-107) H 05/12/17 07:00 Carbon Dioxide 23 mmol/L (21-33) 05/12/17 07:00 Anion Gap 11 (10-20) 05/12/17 07:00 BUN 9 mg/dL (7-21) 05/12/17 07:00 Creatinine 0.6 mg/dl (0.7-1.2) L 05/12/17 07:00 Est GFR ( Amer) > 60 05/12/17 07:00 Est GFR (Non-Af Amer) > 60 05/12/17 07:00 Random Glucose 87 mg/dL (70-110) 05/12/17 07:00 Calcium 8.9 mg/dL (8.4-10.5) 05/12/17 07:00 Phosphorus 3.3 mg/dL (2.5-4.5) 05/12/17 07:00 Magnesium 2.0 mg/dL (1.7-2.2) 05/12/17 07:00 Total Bilirubin 0.8 mg/dL (0.2-1.3) 05/12/17 07:00 AST 28 U/L (14-36) 05/12/17 07:00 ALT 31 U/L (7-56) 05/12/17 07:00 Alkaline Phosphatase 59 U/L (38-126) 05/12/17 07:00 Total Protein 6.9 g/dL (5.8-8.3) 05/12/17 07:00 Albumin 3.8 g/dL (3.0-4.8) 05/12/17 07:00 Globulin 3.1 gm/dL 05/12/17 07:00 Albumin/Globulin Ratio 1.2 (1.1-1.8) 05/12/17 07:00 Lipase 116 U/L (23-300) 05/11/17 10:40 Beta HCG, Quant < 2.39 mIU/mL (0-6.15) 05/11/17 10:40 Urine Color Yellow (YELLOW) 05/11/17 13:00 Urine Appearance Clear (CLEAR) 05/11/17 13:00 Urine pH 6.0 (4.7-8.0) 05/11/17 13:00 Ur Specific [place] 1.025 (1.005-1.035) 05/11/17 13:00 Urine Protein Negative mg/dL (<30 mg/dL) 05/11/17 13:00 Urine Glucose (UA) Negative mg/dL (NEGATIVE) 05/11/17 13:00 Urine Ketones 40 mg/dL (NEGATIVE) H 05/11/17 13:00 Urine Blood Negative (NEGATIVE) 05/11/17 13:00 Urine Nitrate Negative (NEGATIVE) 05/11/17 13:00 Urine Bilirubin Negative (NEGATIVE) 05/11/17 13:00 Urine Urobilinogen 0.2 E.U./dL (<1 E.U./dL) 05/11/17 13:00 Ur Leukocyte Esterase Negative Jose/uL (NEGATIVE) 05/11/17 13:00 Attending/Attestation - Attestation I have personally seen and examined this patient.: Yes I have fully participated in the care of the patient.: Yes I have reviewed all pertinent clinical information, including history, physical exam and plan: Yes Notes (Text): 05/12/17 14:18 Patient was seen and examined with medical record transcriber. Agreed with resident assessment and plan. Patient is feeling better.Her abdominal pain has improved.She is afebrile, tolerating diet.Her symptoms are likely due to gastroenteritis..However due to CT scan finding , we will give short course of Cipro floxacin and Flagyl. Management plan was discussed in detail with patient Education was provided.
== END 2017-05-12 15:57 | disposition home or self-care (01) | DRG 814 ==
LOC: ED 10:06 → ERH 14:50 → 5RSO 15:57
PROVIDERS: ADMIT Internal Medicine; ATTEND Internal Medicine
DX: K52.9 Noninfective gastroenteritis and colitis, unspecified (principal); D50.9 Iron deficiency anemia, unspecified; Z88.0 Allergy status to penicillin; R40.2412 Glasgow coma scale score 13-15, at arrival to emergency department